=== PATIENT | female | born 1945 | race Caucasian/White ===

== ENCOUNTER → 2016-09-21 | Outpatient (CLI) | payer MEDICARE, BC ==
[~2016-09-21] MED LIST: CALCIUM 500 + D1 TAB PO; COUMADIN PO; METOPROLOL SUCC25 MG PO; NAPROXEN PO; NORCO 5/325 TAB1 TAB PO
--- NOTE | ~2016-09-21 | MY11 ---
[facility] A Service of [facility] RADIOLOGY TEXT RESULTS PATIENT: PARAMJIT RAMIREZ LOCATION: [facility] #: [id number] : [birth year] UNIT #: [id number] AGE: [address]: GUERRERO SALEH MD SEX: F ORDER DR: [id number] [facility]. [place], [place] [address] [id number] O MR#: [id number] Acc #: [id number] NAME: PARAMJIT RAMIREZ : 1945 SEX: F STUDY DATE/TIME: 09/21/2016 13:49 UNIT: [facility] ROOM: STUDY DESCRIPTION: MY Mammogram Screening Dig Beny Attending Physician: Guerrero Saleh M.D. Referring Physician: Guerrero Saleh M.D. Ordering Physician: Guerrero Saleh M.D. Primary Care Physician: Guerrero Saleh M.D. MEDICAL IMAGING REPORT This report is preliminary unless electronic signature is present EXAM Bilateral digital screening mammogram with CAD DATE 09/21/2016 HISTORY 2 previous benign breast biopsies. No personal history of breast cancer. Patient designates family history of breast cancer, but relative is not designated. No current complaints. COMPARISON Bilateral screening mammogram 06/07/2012, 05/29/2011, 04/28/2010. FINDINGS CC and MLO views were obtained of each breast utilizing digital technique and reviewed with an FDA-approved CAD device. Scattered fibroglandular densities are present bilaterally. Fibroglandular density in the superior right breast mid to anterior third on the MLO view is unchanged from prior in keeping with benign finding. No new or suspicious nodule is seen. No nonsurgical architectural distortion is evident. No suspicious clustered microcalcifications. IMPRESSION BIRADS category 2. Benign findings. Routine bilateral screening mammogram is recommended in 1 year. Patients over the age of 40 are entered into a reminder system with target due date for the next mammogram. A result letter will also be sent to the patient. [facility] A Service [facility] RADIOLOGY TEXT RESULTS PATIENT: PARAMJIT RAMIREZ [facility] [id number] : [birth year] UNIT #: [id number] AGE: [address]: GUERRERO SALEH MD SEX: F ORDER DR: CITLALY: 2 - Benign finding Dictated by... Nirmala Mcdonald M.D. THIS IS AN ELECTRONICALLY VERIFIED REPORT Nirmala Mcdonald M.D. at 09/22/2016 7:08 AM VANESSA/morales TD: 09/21/2016 17:35 JOB #: [id number] MEDICAL IMAGING REPORT Page 1 of 1 COPY
== END | disposition home or self-care (01) ==
LOC: CWCC 13:28
DX: Z12.31 Encounter for screening mammogram for malignant neoplasm of breast (principal); Z80.3 Family history of malignant neoplasm of breast
CPT/HCPCS: G0202